=== PATIENT | male | born 1960 | race Caucasian/White ===

== ENCOUNTER 2025-10-28 07:30 | Emergency (ER) | payer BC, OTHER ==
[~2025-10-28] VITALS: Ht 177.8 cm; Wt 70.0 kg
[2025-10-28 08:10] LABS: BASOPHILS % 0.4 % (0.0-2.0); EOSINOPHILS % 7.9 % (0.0-5.0); HEMATOCRIT. 46.2 % (42.0-52.0); HEMOGLOBIN. 15.4 g/dL (14.0-18.0); LYMPHOCYTES % 21.4 % (20.0-50.0); MEAN PLATELET VOLUME 8.2 fl (7.4-10.4); MONOCYTES % 5.7 % (2.0-8.0); NEUTROPHILS % 64.6 % (40.0-76.0); PLATELET 221 x1000/uL (130-400); RED BLOOD CELL COUNT 4.96 mill/uL (4.7-6.1); RED CELL DISTRIBUTION WIDTH 13.0 % (11.6-14.6)
[2025-10-28 08:14] LABS: CREATININE 1.0 mg/dL (0.6-1.3); UREA NITROGEN BLOOD 16 mg/dL (9-23)
[2025-10-28] MEDS ORDERED: LIDOCAINE HCL 1% 20ML VIAL INFIL ONE (08:30)
[2025-10-28] MEDS ORDERED: MIDAZOLAM HCL 2 MG/2 ML VIAL IV ONE (09:11)
[2025-10-28 09:33] VITALS: O2SAT 100
[2025-10-28] MEDS: MIDAZOLAM HCL 2 MG/2 ML VIAL ONE (09:33)
[2025-10-28 10:40] VITALS: BP 160/96; PULSE 68; RESP 18; TEMP 36.7; O2SAT 100
== END 2025-10-28 10:59 | disposition home or self-care (01) ==
LOC: ER 07:30
DX: S82.842A Displaced bimalleolar fracture of left lower leg, initial encounter for closed fracture (principal); R56.9 Unspecified convulsions; X58.XXXA Exposure to other specified factors, initial encounter; Y93.89 Activity, other specified; Y92.89 Other specified places as the place of occurrence of the external cause; Y99.8 Other external cause status
CPT/HCPCS: 99285; 80048; 85025; 36415; 73610; 73600; J2003; J2250; A6449